=== PATIENT | male | born 1985 | race American Indian/Alaskan Native ===

== ENCOUNTER 2017-06-14 11:19 | Emergency (ER) | payer OTHER ==
[2017-06-14 11:42] VITALS: BP 126/72
--- NOTE | 2017-06-14 13:14 | Emergency Department Report ---
Abscess Boil HPI - HPI Chief Complaint: Extremity Injury, Upper Stated Complaint: RIGHT RING FINGER SWOLLEN Time Seen by Provider: 06/14/17 12:20 Duration: 3 Days Location: Upper Extremity (rt 4 digits) Severity: Severe (10/10 pain throbbing and achy in) History: Yes Pain (right fourth digit), No Fever, No Purulent Drainage, No Numbness, No Foreign Body, No Previous History, No Insect Bite HPI: Patient here reports that his top of his right fourth finger is swollen, red and painful. Denies any trauma to side. Patient does bite his nails. Tetanus vaccine is not up-to-date. He reports pain 10 out of 10 worse with movement better with rest. No [id number] medication taken for pain. Denies any fever or chills. Denies any nausea or vomiting. Complaints is only related to his right fourth finger. Home Medications: Previous Rx's Medication Instructions Recorded Last Taken Type Naproxen [Naprosyn] 500 mg PO BID #30 tablet 05/17/16 Unknown Rx Acetaminophen/Codeine [Tylenol 1 tab PO Q6H PRN 3 Days #12 tab 06/14/17 Unknown Rx /Codeine # 3 tab] Cephalexin [Keflex] 500 mg PO Q6H 10 Days #40 capsule 06/14/17 Unknown Rx Ibuprofen [Motrin] 600 mg PO Q8H PRN 5 Days #15 tablet 06/14/17 Unknown Rx Allergies/Adverse Reactions: Allergies Allergy/AdvReac Type Severity Reaction Status Date / Time No Known Allergies Allergy Verified 05/17/16 21:04 ED Review of Systems ROS: Stated complaint: RIGHT RING FINGER SWOLLEN Other details as noted in HPI Comment: All other systems reviewed and negative Constitutional: no symptoms reported Respiratory: no symptoms reported Cardiovascular: denies: chest pain, palpitations, dyspnea on exertion, edema, syncope, paroxysmal nocturnal dyspnea Gastrointestinal: denies: abdominal pain, nausea, vomiting Musculoskeletal: joint swelling, arthralgia. denies: back pain, myalgia Skin: other (redness and swelling to tip of right fourth finger) Neurological: denies: headache, numbness, paresthesias ED Past Medical Hx - Past Medical History Previous Medical History?: No - Surgical History Past Surgical History?: No - Family History Family history: no significant - Social History Smoking Status: Current Every Day Smoker Substance Use Type: None - Medications Home Medications: Home Medications Medication Instructions Recorded Confirmed Last Taken Type Naproxen [Naprosyn] 500 mg PO BID #30 tablet 05/17/16 Unknown Rx Acetaminophen/Codeine [Tylenol 1 tab PO Q6H PRN 3 Days #12 tab 06/14/17 Unknown Rx /Codeine # 3 tab] Cephalexin [Keflex] 500 mg PO Q6H 10 Days #40 capsule 06/14/17 Unknown Rx Ibuprofen [Motrin] 600 mg PO Q8H PRN 5 Days #15 tablet 06/14/17 Unknown Rx ED Abscess Boil Physical Exam - Exam General: Vital signs noted. No distress. Alert and acting appropriately. Front/Back of Body, Lg (Color): 1 - Patient will redness, swelling, tenderness to palpate to distal tuft of right fourth digit. Surrounded cellulitis around nail bed. Minimal induration and no fluctuance. Tetanus vaccine given and patient started on antibiotic in emergency room. Size: 1 cm Exam: Yes Tenderness (right fourth digit at tuft and around nailbed), Yes Surrounding Cellulites/Erythema (right fourth digit at tuft surrounding nailbed) , Yes Normal Neurologic Exam, Yes Normal Circulation, No Fluctuance, No Lymphangitis, No Crepitation, No Heart Murmur ED Course Vital Signs 06/14/17 11:37 Temperature 98.3 F Pulse Rate 73 Respiratory 18 Rate Blood Pressure 126/72 O2 Sat by Pulse 97 Oximetry Critical care attestation.: If time is entered above; I have spent that time in minutes in the direct care of this critically ill patient, excluding procedure time. ED Medical Decision Making - Medical Decision Making ED course: Pt here reports that he has swelling to his right fourth finger over few days. Physical findings for cellulitis right fourth distal phalanx surrounding nailbed and at tuft. Area is tender to palpate, no drainage noted. Minimal induration but no fluctuance. Area is not able to be incision and drained at present. Discussed patient that he needs to take antibiotic as prescribed and soak affected area in warm water 3-4 times a day and if areas get him better than there is no need for him to return to the emergency room if areas not getting better he can come back in 4 days for reevaluation and possible incision and drainage. Patient was understanding of discharge instruction and treatment plan. Discharged home with his family prescription for Motrin, Tylenol 3 and Keflex. Instructed to follow up with primary care physician and if he does not have one to follow up at [facility]. Patient was given [place] 5/325 2 tablets and Keflex 500 mg emergency room with positive relief of pain. ED Disposition Clinical Impression: Cellulitis of right ring finger, Finger pain, right Disposition: [id number] TO HOME OR SELFCARE Is pt being admited?: No Does the pt Need Aspirin: No Condition: Stable Instructions: Cellulitis (ED), Arthralgia (ED) Additional Instructions: Please keep affected area clean and dry Please so affected area in warm water 3-4 times a day to facilitate soft and and drainage. Take antibiotics as prescribed Please do not drive or operate heavy machinery while taking in Tylenol 3 as this medication causes drowsiness Return to the emergency room in 4 days if you finger is not better for possible incision and drainage otherwise follow-up at [facility]. Prescriptions: Acetaminophen/Codeine [Tylenol /Codeine # 3 tab] 1 tab PO Q6H PRN 3 Days #12 tab PRN Reason: Pain, Moderate (4-6) Cephalexin [Keflex] 500 mg PO Q6H 10 Days #40 capsule Ibuprofen [Motrin] 600 mg PO Q8H PRN 5 Days #15 tablet PRN Reason: Pain Referrals: [facility] [Outside] - 3-5 Days Forms: Accompanied Note, Work/School Release Form(ED)
[2017-06-14] MEDS ORDERED: NORCO 5/325 PO ONE (13:28)
[2017-06-14] MEDS ORDERED: BOOSTRIX IM ONE (13:28)
[2017-06-14] MEDS ORDERED: KEFLEX PO ONE (13:28)
== END 2017-06-14 14:37 | disposition home or self-care (01) ==
LOC: ED 11:19
DX: L03.011 Cellulitis of right finger (principal); M79.644 Pain in right finger(s); F17.200 Nicotine dependence, unspecified, uncomplicated
CPT/HCPCS: 90471; 90715